=== PATIENT | male | born 1970 | race Caucasian/White ===

== ENCOUNTER 2020-01-12 15:58 | Emergency (ER) | payer OTHER ==
[2020-01-12 16:14] VITALS: BP 165/100; PULSE 84; RESP 16; TEMP 98.7
[2020-01-12] MEDS ORDERED: PENICILLIN VK 500MG STARTER 4 TAB BTL PO STA (16:32)
[2020-01-12] MEDS ORDERED: ACET/COD 300 MG/30 MG STARTER PACK 6 TAB BTL PO STA (16:32)
--- NOTE | 2020-01-12 16:35 | ED ---
General Adult HPI - General Chief complaint: Dental/Oral Stated complaint: Dental Pain Time Seen by Provider: 01/12/20 16:16 Source: patient, RN notes reviewed Mode of arrival: ambulatory Limitations: no limitations - History of Present Illness Initial comments: 49-year-old male presents to the emergency department for a chief complaint of dental pain. Patient reports he has had pain since he broke his teeth 2 days ago on an apple. Patient reports he has poor dentition regardless. Patient saw his doctor today who stated he needed amoxicillin and sent him to the emergency room. Patient reports that he will call his dentist tomorrow. Patient has no sublingual edema. He does admit to some mild right-sided facial swelling. Denies any difficulty swallowing or breathing. Denies any neck stiffness.Patient has no other complaints at this time including shortness of breath, chest pain, abdominal pain, nausea or vomiting, headache, or visual c hanges. - Related Data Allergies Allergy/AdvReac Type Severity Reaction Status Date / Time No Known Allergies Allergy Verified 01/12/20 16:09 Review of Systems ROS Statement: Those systems with pertinent positive or pertinent negative responses have been documented in the HPI. ROS Other: All systems not noted in ROS Statement are negative. Past Medical History Past Medical History: Diabetes Mellitus, Hypertension History of Any Multi-Drug Resistant Organisms: None Reported Past Surgical History: No Surgical Hx Reported Past Psychological History: No Psychological Hx Reported Smoking Status: Former smoker Past Alcohol Use History: Unable to Obtain Past Drug Use History: None Reported General Exam Limitations: no limitations General appearance: alert, in no apparent distress Head exam: Present: atraumatic, normocephalic, normal inspection Eye exam: Present: normal appearance, PERRL, EOMI. Absent: scleral icterus, conjunctival injection, periorbital swelling ENT exam: Present: mucous membranes moist, TM's normal bilaterally, normal external ear exam. Absent: normal oropharynx (Patient has mild right-sided lower facial edema. Tooth 30 appears to be broken. There is no obvious dental abscess with direct visualization and palpation of the gum line.) Neck exam: Present: normal inspection, full ROM. Absent: tenderness, meningismus, lymphadenopathy Respiratory exam: Present: normal lung sounds bilaterally. Absent: respiratory distress, wheezes, rales, rhonchi, stridor Cardiovascular Exam: Present: regular rate, normal rhythm, normal heart sounds. Absent: systolic murmur, diastolic murmur, rubs, gallop, clicks GI/Abdominal exam: Present: soft, normal bowel sounds. Absent: distended, tenderness, guarding, rebound, rigid Course Vital Signs 01/12/20 16:09 Temperature 98.7 F Pulse Rate 84 Respiratory 16 Rate Blood Pressure 165/100 O2 Sat by Pulse 98 Oximetry Medical Decision Making - Medical Decision Making Vitals are stable. Patient is mildly hypertensive with a blood pressure 165/100. No symptoms. He has a history of hypertension and states his blood pressure is usually a little high when he is in pain. He does have some mild right-sided facial edema. There is no sublingual edema difficulty swallowing, or redness or sling spreading into the neck. Patient will be treated with penicillin. I recommended he monitor for any worsening symptoms such as fevers or worsening swelling and return if these occur. He will return for any other worsening symptoms as well. Disposition Clinical Impression: Pain, dental Disposition: HOME SELF-CARE Condition: Good Instructions (If sedation given, give patient instructions): Toothache (ED) Additional Instructions: Please take Motrin and Tylenol for pain. Please take Tylenol 3 as needed Every [address] while taking this. It may make you drowsy. Please apply ice to the area. Take antibiotic as directed. Return to the emergency room for any worsening symptoms. Is patient prescribed a controlled substance at d/c from ED?: No Referrals: Dimitry Crum MD [REFERRING] - 1-2 days Time of Disposition: 16:35
== END 2020-01-12 16:39 | disposition home or self-care (01) ==
LOC: EC 15:58
DX: K08.89 Other specified disorders of teeth and supporting structures (principal); I10 Essential (primary) hypertension; Z87.891 Personal history of nicotine dependence
CPT/HCPCS: 99282